=== PATIENT | male | born 1950 | race Caucasian/White ===

== ENCOUNTER 2017-09-19 16:37 | Emergency (ER) | payer MEDICARE, MEDICAID ==
[~2017-09-19] VITALS: Ht 170.2 cm; Wt 90.0 kg
[2017-09-19] MEDS ORDERED: MORPHINE SULFATE 4 MG/ML CPJ (NOT FOR IM USE) IV STA (17:51)
[2017-09-19] MEDS ORDERED: SODIUM CHLORIDE 0.9% 1,000 ML IV ONE (17:51)
[2017-09-19] MEDS ORDERED: ONDANSETRON HCL 4MG/2ML VIAL IV STA (17:51)
[2017-09-19 18:14] LABS: BASOPHILS % 0.6 % (0.0-2.0); EOSINOPHILS % 0.7 % (0.0-5.0); HEMATOCRIT. 34.9 % (42.0-52.0); HEMOGLOBIN. 12.2 g/dL (14.0-18.0); LYMPHOCYTES % 13.6 % (20.0-50.0); MEAN CORPUSCULAR HEMOGLOBIN 30.8 pg (28.0-32.0); MEAN CORPUSCULAR VOLUME 87.7 fL (80.0-94.0); MEAN PLATELET VOLUME 7.8 fl (7.4-10.4); MONOCYTES % 9.1 % (2.0-8.0); PLATELET 114 x1000/uL (130-400); RED BLOOD CELL COUNT 3.97 mill/uL (4.7-6.1); RED CELL DISTRIBUTION WIDTH 15.1 % (11.6-14.6)
[2017-09-19 18:18] LABS: CHLORIDE 104 mEq/L (98-107)
[2017-09-19 18:22] LABS: INR 1.1; PROTHROMBIN TIME 11.1 sec (9.4-11.6)
[2017-09-19 19:07] LABS: CLARITY URINE CLEAR (CLEAR); COLOR URINE AMBER (YELLOW); KETONES URINE NEGATIVE (NEGATIVE); LEUKOCYTE ESTERASE URINE NEGATIVE (NEGATIVE); NITRITE URINE NEGATIVE (NEGATIVE); OCCULT BLOOD URINE 3+ (NEGATIVE); PH URINE 6.5 (4.5-8.0); PROTEIN URINE TRACE (NEGATIVE)
[2017-09-19] MEDS ORDERED: FAMOTIDINE 20MG/2ML VIAL IV ONE (19:15)
[2017-09-19] MEDS ORDERED: MORPHINE SULFATE 4 MG/ML CPJ (NOT FOR IM USE) IV ONE (20:00)
[2017-09-19 21:45] VITALS: BP 140/74
== END 2017-09-20 07:49 | disposition home or self-care (01) ==
LOC: ER 16:38
DX: N13.2 Hydronephrosis with renal and ureteral calculous obstruction (principal); R07.89 Other chest pain; E11.9 Type 2 diabetes mellitus without complications; R03.0 Elevated blood-pressure reading, without diagnosis of hypertension; I25.2 Old myocardial infarction; Z85.038 Personal history of other malignant neoplasm of large intestine; Z95.5 Presence of coronary angioplasty implant and graft
CPT/HCPCS: 36415; 74176; 80053; 81003; 83690; 84484; 85025; 85610; 93005; 96361; 96374; 96375; 96376; 99291; J2270; J2405; J3490; J7030

== ENCOUNTER 2021-05-28 14:52 | Emergency (ER) | payer MEDICARE, MEDICAID ==
[~2021-05-28] VITALS: Ht 170.2 cm; Wt 82.0 kg
[2021-05-28] MEDS ORDERED: SODIUM CHLORIDE 0.9% 1,000 ML IV ONE ×2 (16:15)
[2021-05-28 16:50] LABS: BASOPHILS % 0.6 % (0.0-2.0); EOSINOPHILS % 1.5 % (0.0-5.0); HEMOGLOBIN. 14.5 g/dL (14.0-18.0); LYMPHOCYTES % 17.4 % (20.0-50.0); MEAN CORPUSCULAR HEMOGLOBIN 28.9 pg (28.0-32.0); MEAN CORPUSCULAR VOLUME 83.7 fL (80.0-94.0); MEAN PLATELET VOLUME 7.6 fl (7.4-10.4); MONOCYTES % 10.5 % (2.0-8.0); PLATELET 107 x1000/uL (130-400); RED BLOOD CELL COUNT 5.02 mill/uL (4.7-6.1); RED CELL DISTRIBUTION WIDTH 15.3 % (11.6-14.6)
[2021-05-28 16:57] LABS: CLARITY URINE CLEAR (CLEAR); COLOR URINE YELLOW (YELLOW); KETONES URINE NEGATIVE (NEGATIVE); LEUKOCYTE ESTERASE URINE NEGATIVE (NEGATIVE); NITRITE URINE NEGATIVE (NEGATIVE); OCCULT BLOOD URINE NEGATIVE (NEGATIVE); PH URINE 5.5 (4.5-8.0); PROTEIN URINE NEGATIVE (NEGATIVE); SPECIFIC GRAVITY URINE 1.033 (1.005-1.030); UROBILINOGEN URINE 0.2 E.U./dL (0.2-1.0)
[2021-05-28] MEDS ORDERED: INSULIN REGULAR (HUMULIN R) 300UNITS/3ML VIAL SUBCUT ONE (17:45)
[2021-05-28] MEDS ORDERED: HYDROCODONE/ACETAMINOPHEN 5/325MG TABLET PO ONE (18:00)
[2021-05-28] MEDS ORDERED: DAPA10TA MT (18:14)
[2021-05-28 18:42] VITALS: BP 162/75
== END 2021-05-28 18:47 | disposition home or self-care (01) ==
LOC: ER 14:52
DX: M25.561 Pain in right knee (principal); E11.65 Type 2 diabetes mellitus with hyperglycemia; I12.9 Hypertensive chronic kidney disease with stage 1 through stage 4 chronic kidney disease, or unspecified chronic kidney disease; E11.22 Type 2 diabetes mellitus with diabetic chronic kidney disease; N18.9 Chronic kidney disease, unspecified; Z79.4 Long term (current) use of insulin; Z85.9 Personal history of malignant neoplasm, unspecified; I25.2 Old myocardial infarction
CPT/HCPCS: 36415; 73562; 80048; 81003; 82962; 85025; 96360; 99284; J1815; J7030

== ENCOUNTER 2022-05-18 10:05 | Inpatient (IN) | payer MEDICARE, MEDICAID ==
[~2022-05-18] VITALS: Ht 170.2 cm; Wt 91.2 kg
[~2022-05-18 10:05] MED LIST: DAPA10TA MT
[2022-05-18] MEDS ORDERED: ACETAMINOPHEN 325MG TABLET PO STA (10:24)
[2022-05-18] MEDS ORDERED: ONDANSETRON 4MG ODT PO STA (10:24)
[2022-05-18 13:19] LABS: BASOPHILS % 0.3 % (0.0-2.0); EOSINOPHILS % 0.5 % (0.0-5.0); HEMATOCRIT. 40.8 % (42.0-52.0); HEMOGLOBIN. 13.8 g/dL (14.0-18.0); LYMPHOCYTES % 16.6 % (20.0-50.0); MEAN CORPUSCULAR HEMOGLOBIN 29.6 pg (28.0-32.0); MEAN CORPUSCULAR VOLUME 87.5 fL (80.0-94.0); MEAN PLATELET VOLUME 7.9 fl (7.4-10.4); MONOCYTES % 13.1 % (2.0-8.0); NEUTROPHILS % 69.5 % (40.0-76.0); PLATELET 121 x1000/uL (130-400); RED BLOOD CELL COUNT 4.66 mill/uL (4.7-6.1); RED CELL DISTRIBUTION WIDTH 14.9 % (11.6-14.6)
[2022-05-18 13:39] LABS: PROTHROMBIN TIME 10.7 sec (9.6-11.0)
[2022-05-18 14:01] LABS: CHLORIDE 96 mEq/L (98-107)
[2022-05-18] MEDS ORDERED: KETOROLAC 30MG/ML VIAL IV STA (14:59)
[2022-05-18] MEDS ORDERED: ACETAMINOPHEN 325MG TABLET PO NR (15:00)
[2022-05-18] MEDS ORDERED: ONDANSETRON 4MG ODT PO NR (15:00)
[2022-05-18] MEDS ORDERED: SODIUM CHLORIDE 0.9% 1,000 ML IV ONE (15:00)
[2022-05-18 15:22] LABS: CLARITY URINE CLEAR (CLEAR); COLOR URINE YELLOW (YELLOW); KETONES URINE NEGATIVE (NEGATIVE); LEUKOCYTE ESTERASE URINE NEGATIVE (NEGATIVE); NITRITE URINE NEGATIVE (NEGATIVE); OCCULT BLOOD URINE NEGATIVE (NEGATIVE); PH URINE 5.5 (4.5-8.0); PROTEIN URINE 1+ (NEGATIVE); SPECIFIC GRAVITY URINE 1.038 (1.005-1.030)
[2022-05-18] MEDS ORDERED: INSULIN REGULAR (HUMULIN R) 300UNITS/3ML VIAL IV ONE (16:00)
[2022-05-18] MEDS ORDERED: DEXTROSE 50% WATER 50ML SYRINGE IV PRN (19:30)
[2022-05-18] MEDS ORDERED: NITROGLYCERIN 0.4MG TABLET SL SL PRN (19:30)
[2022-05-18] MEDS ORDERED: ACETAMINOPHEN 325MG TABLET PO PRN ×2 (19:30)
[2022-05-18] MEDS ORDERED: ONDANSETRON HCL 4MG/2ML INJ IV PRN (19:30)
[2022-05-18] MEDS ORDERED: ZOLPIDEM TARTRATE 5MG TABLET PO PRN (19:30)
[2022-05-18] MEDS ORDERED: MAGNESIUM/ALUMINUM HYDROXIDE/SIMETHICONE 30ML UDC PO PRN (19:30)
[2022-05-18] MEDS ORDERED: CLONIDINE 0.1MG TABLET PO PRN (19:30)
[2022-05-18] MEDS ORDERED: GUAIFENESIN 200MG/10ML SUGAR FREE UDC PO PRN (19:30)
[2022-05-18] MEDS ORDERED: IPRATROPIUM/ALBUTEROL 0.5-3(2.5)MG/3ML NEB NEB PRN (19:30)
[2022-05-18] MEDS ORDERED: DOCUSATE SODIUM 100MG CAPSULE PO PRN (19:30)
[2022-05-18] MEDS ORDERED: ENOXAPARIN 40MG/0.4ML SYR SUBCUT SCH (19:45)
[2022-05-18] MEDS ORDERED: CEFTRIAXONE 1 G PREMIX 50 ML IV NR (19:45)
[2022-05-18 19:57] LABS: T4 FREE 1.09 ng/dL (0.76-1.46)
[2022-05-18] MEDS: INSULIN LISPRO 100 UNITS/ML SUBCUT SCH (20:08)
[2022-05-18] MEDS: SODIUM CHLORIDE 0.9% 1,000 ML IV SCH (20:08)
[2022-05-18 20:14] LABS: FOLIC ACID (FOLATE) SERUM 17.1 ng/mL (>5.38)
[2022-05-18] MEDS ORDERED: FAMOTIDINE 20MG TABLET PO SCH (21:00)
[2022-05-18] MEDS ORDERED: BLOOD SUGAR DIAGNOSTIC STRIP TEST SCH (21:00)
[2022-05-18] MEDS ORDERED: ASCORBIC ACID 500 MG TABLET PO SCH (21:00)
[2022-05-18] MEDS ORDERED: INSULIN LISPRO 100 UNITS/ML SUBCUT SCH (21:00)
[2022-05-18] MEDS: INSULIN GLARGINE 100 UNITS/ML SUBCUT SCH (22:00)
[2022-05-19 05:00] VITALS: BP 130/55
[2022-05-19] MEDS ORDERED: INSULIN GLARGINE 100 UNITS/ML SUBCUT NR (05:45)
[2022-05-19] MEDS: SODIUM CHLORIDE 0.9% 1,000 ML IV SCH (06:26)
[2022-05-19] MEDS: INSULIN LISPRO 100 UNITS/ML SUBCUT SCH ×6 (06:42→21:28)
[2022-05-19] MEDS: BLOOD SUGAR DIAGNOSTIC STRIP TEST SCH ×3 (06:43→21:08)
[2022-05-19 08:00] VITALS: BP 117/50
[2022-05-19] MEDS ORDERED: ZINC SULFATE 220 MG ( 50 ) CAPSULE PO SCH (09:00)
[2022-05-19] MEDS ORDERED: TAMSULOSIN HCL 0.4MG SR CAPSULE PO SCH (09:00)
[2022-05-19 10:48] LABS: BASOPHILS % 0.7 % (0.0-2.0); EOSINOPHILS % 1.8 % (0.0-5.0); HEMATOCRIT. 35.1 % (42.0-52.0); HEMOGLOBIN. 12.1 g/dL (14.0-18.0); LYMPHOCYTES % 22.2 % (20.0-50.0); MEAN CORPUSCULAR HEMOGLOBIN 29.6 pg (28.0-32.0); MEAN PLATELET VOLUME 7.3 fl (7.4-10.4); MONOCYTES % 14.8 % (2.0-8.0); NEUTROPHILS % 60.5 % (40.0-76.0); PLATELET 112 x1000/uL (130-400); RED BLOOD CELL COUNT 4.08 mill/uL (4.7-6.1); RED CELL DISTRIBUTION WIDTH 14.7 % (11.6-14.6)
[2022-05-19 11:03] LABS: CHLORIDE 107 mEq/L (98-107)
[2022-05-19 11:11] LABS: PHOSPHORUS 1.8 mg/dL (2.5-4.9)
[2022-05-19 12:00] VITALS: BP 120/55
[2022-05-19] MEDS: KETOROLAC 15MG/ML VIAL IV PRN (12:21)
[2022-05-19 16:00] VITALS: BP 116/55
[2022-05-19] MEDS ORDERED: ALBUTEROL (0.083%) 2.5MG/3ML NEB HHN PRN (16:30)
[2022-05-19] MEDS ORDERED: IPRATROPIUM BROMIDE (0.02%) 0.5MG/2.5ML NEB HHN PRN (16:30)
[2022-05-19] MEDS ORDERED: ENOXAPARIN 40MG/0.4ML SYR SUBCUT SCH (18:30)
[2022-05-19] MEDS ORDERED: CEFTRIAXONE 1,000 MG in DEXTROSE 5% WATER 50 ML IV SCH (19:00)
[2022-05-19 20:00] VITALS: BP 139/68
[2022-05-19] MEDS ORDERED: ATORVASTATIN CALCIUM 20MG TABLET PO SCH (21:00)
[2022-05-19] MEDS: INSULIN GLARGINE 100 UNITS/ML SUBCUT SCH (21:29)
[2022-05-20] VITALS: BP 133/65
[2022-05-20] MEDS: DILTIAZEM HCL 60MG TABLET PO SCH ×2 (00:54→06:49)
[2022-05-20] MEDS: SODIUM CHLORIDE 0.9% 1,000 ML IV SCH (00:54)
[2022-05-20 04:00] VITALS: BP 127/46
[2022-05-20] MEDS: KETOROLAC 15MG/ML VIAL IV PRN (06:50)
[2022-05-20] MEDS: BLOOD SUGAR DIAGNOSTIC STRIP TEST SCH ×2 (07:05→12:20)
[2022-05-20] MEDS: INSULIN LISPRO 100 UNITS/ML SUBCUT SCH ×3 (07:10→13:32)
[2022-05-20 08:00] VITALS: BP 123/51
[2022-05-20] MEDS ORDERED: LEVO250T74 MT (09:59)
[2022-05-20] MEDS ORDERED: ATOR20TA PO (09:59)
[2022-05-20] MEDS ORDERED: LANTUSUD SUBCUT (09:59)
[2022-05-20] MEDS ORDERED: AMLO5TAB4 MT (09:59)
[2022-05-20] MEDS ORDERED: INSLIS SUBCUT (09:59)
[2022-05-20 12:00] VITALS: BP 120/57
[2022-05-20 12:16] VITALS: BP 123/51
== END 2022-05-20 13:58 | disposition home or self-care (01) | DRG 391 ==
LOC: ER 10:17 → MICUSO 19:22 → SUPCPDRO 20:39 → 6EST 05-19 03:29
PROVIDERS: ADMIT Internal Medicine; ATTEND Internal Medicine
DX: K52.9 Noninfective gastroenteritis and colitis, unspecified (principal); N17.0 Acute kidney failure with tubular necrosis; N13.2 Hydronephrosis with renal and ureteral calculous obstruction; E87.1 Hypo-osmolality and hyponatremia; K21.9 Gastro-esophageal reflux disease without esophagitis; E11.65 Type 2 diabetes mellitus with hyperglycemia; D69.6 Thrombocytopenia, unspecified; I12.9 Hypertensive chronic kidney disease with stage 1 through stage 4 chronic kidney disease, or unspecified chronic kidney disease; E78.00 Pure hypercholesterolemia, unspecified; I25.10 Atherosclerotic heart disease of native coronary artery without angina pectoris; E11.22 Type 2 diabetes mellitus with diabetic chronic kidney disease; E87.8 Other disorders of electrolyte and fluid balance, not elsewhere classified; D72.819 Decreased white blood cell count, unspecified; N18.9 Chronic kidney disease, unspecified; Z85.038 Personal history of other malignant neoplasm of large intestine; Z91.14 Patient's other noncompliance with medication regimen; Z79.4 Long term (current) use of insulin; I25.2 Old myocardial infarction; Z87.442 Personal history of urinary calculi; Z90.49 Acquired absence of other specified parts of digestive tract
CPT/HCPCS: 36415; 74176; 80053; 80061; 81003; 82607; 82746; 82962; 83036; 83540; 83550; 83735; 83930; 84100; 84439; 84443; 84484; 85025; 93005; 93970; 99285; J0696; J1650; J1815; J1885; J7030; J7060; Q0162

== ENCOUNTER 2023-05-13 16:23 | Emergency (ER) | payer MEDICARE, MEDICAID ==
[~2023-05-13] VITALS: Ht 170.2 cm; Wt 73.0 kg
[~2023-05-13 16:23] MED LIST changes: +AMLO5TAB4 MT; +ATOR20TA PO; +INSLIS SUBCUT; +LANTUSUD SUBCUT; +LEVO250T74 MT
[2023-05-13 16:25] VITALS: O2SAT 100
[2023-05-13 16:40] VITALS: BP 121/52; PULSE 73; RESP 16; TEMP 97.5
[2023-05-13] MEDS: SODIUM CHLORIDE 0.9% 1,000 ML IV ONE (16:49)
[2023-05-13 18:07] LABS: BASOPHILS % 0.7 % (0.0-2.0); EOSINOPHILS % 0.7 % (0.0-5.0); HEMATOCRIT. 31.5 % (42.0-52.0); HEMOGLOBIN. 10.8 g/dL (14.0-18.0); MEAN CORPUSCULAR HEMOGLOBIN 29.9 pg (28.0-32.0); MEAN CORPUSCULAR HGB CONC 34.3 g/dL (31.0-37.0); MEAN CORPUSCULAR VOLUME 87.2 fL (80.0-94.0); NEUTROPHILS % 62.6 % (40.0-76.0); PLATELET 87 x1000/uL (130-400); RED BLOOD CELL COUNT 3.61 mill/uL (4.7-6.1); RED CELL DISTRIBUTION WIDTH 15.2 % (11.6-14.6)
[2023-05-13 18:19] LABS: ALANINE AMINOTRANSFERASE < 7 IU/L (10-49); ALBUMIN 3.7 g/dL (3.2-4.8); ASPARTATE AMINOTRANSFERASE 9 IU/L (<34); BETA HYDROXYBUTYRATE 0.3 mMol/L (0.0-0.3); BILIRUBIN TOTAL 1.7 mg/dL (0.1-1.0); CALCIUM 9.1 mg/dL (8.7-10.4); CARBON DIOXIDE 26 mEq/L (21-32); CHLORIDE 99 mEq/L (98-107); CREATININE 1.6 mg/dL (0.6-1.3); POTASSIUM 4.6 mEq/L (3.5-5.1); PROTEIN TOTAL 5.9 g/dL (6.0-8.3); SODIUM 131 mEq/L (136-145); UREA NITROGEN BLOOD 22 mg/dL (9-23)
[2023-05-13 18:24] LABS: GLUCOSE 520 mg/dL (70-105)
== END 2023-05-13 19:32 | disposition left against medical advice (07) ==
LOC: ER 16:23
DX: E11.65 Type 2 diabetes mellitus with hyperglycemia (principal); E78.00 Pure hypercholesterolemia, unspecified; I10 Essential (primary) hypertension; I25.2 Old myocardial infarction; Z85.9 Personal history of malignant neoplasm, unspecified
CPT/HCPCS: 99283; 96360; 80053; 82010; 85025; 36415; J7030

== ENCOUNTER 2023-07-16 13:43 | Emergency (ER) | payer MEDICARE, MEDICAID ==
[~2023-07-16] VITALS: Ht 167.6 cm; Wt 82.0 kg
[2023-07-16 13:48] VITALS: O2SAT 100
[2023-07-16] MEDS: SODIUM CHLORIDE 0.9% 1,000 ML IV ONE (14:51)
[2023-07-16 14:56] LABS: BASOPHILS % 0.9 % (0.0-2.0); EOSINOPHILS % 0.7 % (0.0-5.0); HEMATOCRIT. 29.8 % (42.0-52.0); HEMOGLOBIN. 10.3 g/dL (14.0-18.0); LYMPHOCYTES % 18.8 % (20.0-50.0); MEAN CORPUSCULAR HEMOGLOBIN 30.3 pg (28.0-32.0); MEAN CORPUSCULAR HGB CONC 34.7 g/dL (31.0-37.0); MEAN CORPUSCULAR VOLUME 87.2 fL (80.0-94.0); MONOCYTES % 12.2 % (2.0-8.0); NEUTROPHILS % 67.4 % (40.0-76.0); PLATELET 80 x1000/uL (130-400); RED BLOOD CELL COUNT 3.41 mill/uL (4.7-6.1); RED CELL DISTRIBUTION WIDTH 14.1 % (11.6-14.6); WHITE BLOOD COUNT 2.7 x1000/uL (4.5-11.0)
[2023-07-16 15:02] LABS: CHLORIDE 101 mEq/L (98-107); POTASSIUM 4.4 mEq/L (3.5-5.1); SODIUM 135 mEq/L (136-145)
[2023-07-16 15:03] LABS: CARBON DIOXIDE 28 mEq/L (21-32)
[2023-07-16 15:08] LABS: CREATININE 1.5 mg/dL (0.6-1.3)
[2023-07-16 15:09] LABS: UREA NITROGEN BLOOD 27 mg/dL (9-23)
[2023-07-16 15:10] LABS: ALANINE AMINOTRANSFERASE 9 IU/L (10-49); ALBUMIN 4.2 g/dL (3.2-4.8); ASPARTATE AMINOTRANSFERASE 13 IU/L (<34)
[2023-07-16 15:11] LABS: PROTEIN TOTAL 6.8 g/dL (6.0-8.3)
[2023-07-16 15:12] LABS: INR 0.9; PROTHROMBIN TIME 10.5 sec (9.6-11.0)
[2023-07-16 15:22] LABS: ETHANOL BLOOD < 10 mg/dL (<10); GLUCOSE 472 mg/dL (70-105); TROPONIN I HIGH SENSITIVITY < 4 ng/L (3.0-53)
[2023-07-16 15:38] LABS: CLARITY URINE CLEAR (CLEAR); COLOR URINE YELLOW (YELLOW); GLUCOSE URINE 3+ (NEGATIVE); KETONES URINE NEGATIVE (NEGATIVE); LEUKOCYTE ESTERASE URINE NEGATIVE (NEGATIVE); NITRITE URINE NEGATIVE (NEGATIVE); OCCULT BLOOD URINE TRACE (NEGATIVE); PROTEIN URINE 2+ (NEGATIVE)
[2023-07-16] MEDS: INSULIN REGULAR (HUMULIN R) 300UNITS/3ML VIAL IV ONE (15:48)
[2023-07-16 16:55] LABS: BACTERIA URINE TRACE; RBC URINE 0-2 /hpf (0-2); SQUAMOUS EPITHELIAL CELL URINE RARE /lpf (RARE/1+); WBC URINE NONE SEEN /hpf (0-2)
[2023-07-16 17:10] LABS: TROPONIN I HIGH SENSITIVITY < 4 ng/L (3.0-53)
[2023-07-16] MEDS: ASPIRIN 325MG EC TABLET PO ONE (18:04)
[2023-07-16 18:12] LABS: TROPONIN I HIGH SENSITIVITY < 4 ng/L (3.0-53)
[2023-07-16 18:50] VITALS: BP 152/74; PULSE 73; RESP 16; TEMP 98.2
== END 2023-07-16 19:48 | disposition left against medical advice (07) ==
LOC: ER 13:43 → CANBEDREQ 07-17 16:31
DX: I63.9 Cerebral infarction, unspecified (principal); E11.9 Type 2 diabetes mellitus without complications; E78.00 Pure hypercholesterolemia, unspecified; I10 Essential (primary) hypertension; I25.2 Old myocardial infarction; Z85.9 Personal history of malignant neoplasm, unspecified; Z98.890 Other specified postprocedural states
CPT/HCPCS: 80053; 81003; 80320; 82962; 83605; 83690; 85025; 85610; 84484; 36415; 71045; 70450; 93005; 96361; 96374; 99285; J1815; J7030; G0480

== ENCOUNTER 2024-02-29 19:47 | Inpatient (IN) | payer OTHER, MEDICARE, MEDICAID ==
[~2024-02-29] VITALS: Ht 170.2 cm; Wt 59.9 kg
[~2024-02-29 19:47] MED LIST changes: -AMLO5TAB4 MT; +ASPI-1406 PO; -ATOR20TA PO; +ATOR40TA70 PO; -DAPA10TA MT; +GABA-529 PO; +GLIP10TA17 PO; -INSLIS SUBCUT; +INSU100I13 SUBCUT; +LACT10SO7 PO; -LANTUSUD SUBCUT; -LEVO250T74 MT; +LOSA100T33 PO; +OLAN5TAB74 PO; +PIOG45TA64 PO; +QUET25TA PO; +SITA100T11 PO
[2024-02-29] MEDS ORDERED: LACTATED RINGERS 1,000 ML IV SCH (20:15)
[2024-02-29] MEDS: SODIUM CHLORIDE 0.9% (SEPSIS BOLUS) IV ONE (20:21)
[2024-02-29 20:26] LABS: BASOPHILS % 0.5 % (0.0-2.0); EOSINOPHILS % 1.1 % (0.0-5.0); HEMATOCRIT. 30.4 % (42.0-52.0); HEMOGLOBIN. 10.4 g/dL (14.0-18.0); LYMPHOCYTES % 20.7 % (20.0-50.0); MEAN CORPUSCULAR HEMOGLOBIN 31.6 pg (28.0-32.0); MEAN CORPUSCULAR HGB CONC 34.2 g/dL (31.0-37.0); MEAN CORPUSCULAR VOLUME 92.3 fL (80.0-94.0); MEAN PLATELET VOLUME 7.5 fl (7.4-10.4); MONOCYTES % 9.9 % (2.0-8.0); NEUTROPHILS % 67.8 % (40.0-76.0); PLATELET 132 x1000/uL (130-400); RED BLOOD CELL COUNT 3.29 mill/uL (4.7-6.1); RED CELL DISTRIBUTION WIDTH 15.1 % (11.6-14.6); WHITE BLOOD COUNT 4.8 x1000/uL (4.5-11.0)
[2024-02-29 20:31] LABS: CHLORIDE 107 mEq/L (98-107); POTASSIUM 4.1 mEq/L (3.5-5.1); SODIUM 139 mEq/L (136-145)
[2024-02-29 20:32] LABS: CARBON DIOXIDE 23 mEq/L (21-32)
[2024-02-29 20:33] LABS: CALCIUM 8.5 mg/dL (8.7-10.4)
[2024-02-29 20:37] LABS: CREATININE 1.3 mg/dL (0.6-1.3); GLUCOSE 206 mg/dL (70-105); UREA NITROGEN BLOOD 26 mg/dL (9-23)
[2024-02-29 20:38] LABS: PARTIAL THROMBOPLASTIN TIME 27.7 sec (23.4-31.0); PROTHROMBIN TIME 11.6 sec (9.6-11.0); TROPONIN I HIGH SENSITIVITY 4 ng/L (3.0-53)
[2024-02-29 20:39] LABS: ALANINE AMINOTRANSFERASE 8 IU/L (10-49); ALBUMIN 3.2 g/dL (3.2-4.8); ASPARTATE AMINOTRANSFERASE 11 IU/L (<34)
[2024-02-29 20:40] LABS: BILIRUBIN DIRECT 0.4 mg/dL (<=3.0); BILIRUBIN TOTAL 1.5 mg/dL (0.1-1.0); PROTEIN TOTAL 5.4 g/dL (6.0-8.3)
[2024-02-29] MEDS: PIPERACILLIN/TAZO 3.375G/50ML 50 ML IV STA (21:12)
[2024-02-29] MEDS: VANCOMYCIN 1G PREMIX 200 ML IV SCH (21:47)
[2024-03-01] MEDS: ASPIRIN 300MG SUPP PR ONE (00:50)
[2024-03-01 05:00] VITALS: BP 166/62; PULSE 82; RESP 20; TEMP 36.418
[2024-03-01] MEDS ORDERED: DEXTROSE 50% WATER 50ML SYRINGE IV PRN (05:45)
[2024-03-01] MEDS: BLOOD SUGAR DIAGNOSTIC STRIP TEST SCH (06:39)
[2024-03-01] MEDS: INSULIN LISPRO 100 UNITS/ML SUBCUT SCH (06:40)
[2024-03-01] MEDS: PIPERACILLIN/TAZO 3.375G/100ML 100 ML IV SCH (06:44)
[2024-03-01] MEDS: CLONIDINE 0.1MG TABLET PO PRN (06:44)
[2024-03-01 08:18] VITALS: BP 140/68; PULSE 82; RESP 19; TEMP 35.78064; O2SAT 97
[2024-03-01 09:46] LABS: CARBON DIOXIDE 26 mEq/L (21-32); CHLORIDE 109 mEq/L (98-107); POTASSIUM 3.9 mEq/L (3.5-5.1); SODIUM 140 mEq/L (136-145)
[2024-03-01 09:47] LABS: CALCIUM 8.8 mg/dL (8.7-10.4)
[2024-03-01] MEDS: PANTOPRAZOLE SODIUM 40 MG/VIAL IV SCH (09:50)
[2024-03-01 09:52] LABS: CREATININE 1.2 mg/dL (0.6-1.3); GLUCOSE 182 mg/dL (70-105); UREA NITROGEN BLOOD 28 mg/dL (9-23)
[2024-03-01 09:53] LABS: ALANINE AMINOTRANSFERASE < 7 IU/L (10-49); AMMONIA < 17 uMol/L (<32); ASPARTATE AMINOTRANSFERASE 9 IU/L (<34)
[2024-03-01 09:54] LABS: ALBUMIN 3.2 g/dL (3.2-4.8); BILIRUBIN DIRECT 0.5 mg/dL (<=3.0); BILIRUBIN TOTAL 1.7 mg/dL (0.1-1.0); PROTEIN TOTAL 5.2 g/dL (6.0-8.3)
[2024-03-01 10:37] LABS: BASOPHILS % 0.7 % (0.0-2.0); EOSINOPHILS % 1.9 % (0.0-5.0); HEMATOCRIT. 27.3 % (42.0-52.0); HEMOGLOBIN. 9.3 g/dL (14.0-18.0); LYMPHOCYTES % 24.9 % (20.0-50.0); MEAN CORPUSCULAR HGB CONC 34.2 g/dL (31.0-37.0); MEAN CORPUSCULAR VOLUME 90.6 fL (80.0-94.0); MEAN PLATELET VOLUME 7.4 fl (7.4-10.4); MONOCYTES % 7.6 % (2.0-8.0); NEUTROPHILS % 64.9 % (40.0-76.0); PLATELET 110 x1000/uL (130-400); RED BLOOD CELL COUNT 3.01 mill/uL (4.7-6.1); WHITE BLOOD COUNT 4.8 x1000/uL (4.5-11.0)
[2024-03-01 12:00] VITALS: BP 121/52; PULSE 80; RESP 20; TEMP 36.3918; O2SAT 97
[2024-03-01] MEDS ORDERED: LACTULOSE 20G/30ML UDC PO PRN (12:30)
[2024-03-01 16:00] VITALS: BP 119/58; PULSE 93; RESP 20; TEMP 36.33624; O2SAT 96
[2024-03-01 20:00] VITALS: BP 123/78; PULSE 76; RESP 19; TEMP 35.89176; O2SAT 100
[2024-03-01] MEDS: QUETIAPINE FUMARATE 25MG TABLET PO SCH (20:56)
[2024-03-01] MEDS: ATORVASTATIN CALCIUM 40MG TABLET PO SCH (20:56)
[2024-03-01] MEDS: PIPERACILLIN/TAZO 3.375G/50ML 50 ML IV SCH (23:12)
[2024-03-02] VITALS: BP 161/77; PULSE 79; RESP 18; TEMP 35.89176; O2SAT 100
[2024-03-02 04:00] VITALS: BP 108/83; PULSE 101; RESP 20; TEMP 35.89176; O2SAT 98
[2024-03-02 06:08] LABS: CLARITY URINE CLEAR (CLEAR); COLOR URINE YELLOW (YELLOW); GLUCOSE URINE NEGATIVE (NEGATIVE); KETONES URINE NEGATIVE (NEGATIVE); LEUKOCYTE ESTERASE URINE NEGATIVE (NEGATIVE); NITRITE URINE NEGATIVE (NEGATIVE); OCCULT BLOOD URINE NEGATIVE (NEGATIVE); PH URINE 5.5 (4.5-8.0); PROTEIN URINE 1+ (NEGATIVE); SPECIFIC GRAVITY URINE 1.009 (1.005-1.030); UROBILINOGEN URINE 0.2 E.U./dL (0.2-1.0)
[2024-03-02 07:04] LABS: SQUAMOUS EPITHELIAL CELL URINE NONE SEEN /lpf (RARE/1+)
[2024-03-02 07:05] LABS: BACTERIA URINE NONE SEEN; RBC URINE 0-2 /hpf (0-2); WBC URINE 0-2 /hpf (0-2)
[2024-03-02 07:38] LABS: CHLORIDE 109 mEq/L (98-107); POTASSIUM 3.9 mEq/L (3.5-5.1); SODIUM 142 mEq/L (136-145)
[2024-03-02 07:39] LABS: CALCIUM 9.4 mg/dL (8.7-10.4); CARBON DIOXIDE 27 mEq/L (21-32)
[2024-03-02 07:44] LABS: GLUCOSE 106 mg/dL (70-105); UREA NITROGEN BLOOD 20 mg/dL (9-23)
[2024-03-02 08:00] VITALS: BP 152/70; PULSE 89; RESP 19; TEMP 36.55848; O2SAT 100
[2024-03-02 08:39] LABS: BASOPHILS % 0.9 % (0.0-2.0); EOSINOPHILS % 2.1 % (0.0-5.0); HEMATOCRIT. 30.3 % (42.0-52.0); HEMOGLOBIN. 10.6 g/dL (14.0-18.0); LYMPHOCYTES % 27.6 % (20.0-50.0); MEAN CORPUSCULAR HEMOGLOBIN 31.4 pg (28.0-32.0); MEAN CORPUSCULAR HGB CONC 34.9 g/dL (31.0-37.0); MEAN PLATELET VOLUME 7.7 fl (7.4-10.4); MONOCYTES % 7.2 % (2.0-8.0); NEUTROPHILS % 62.2 % (40.0-76.0); PLATELET 109 x1000/uL (130-400); RED BLOOD CELL COUNT 3.37 mill/uL (4.7-6.1); RED CELL DISTRIBUTION WIDTH 15.4 % (11.6-14.6); WHITE BLOOD COUNT 4.6 x1000/uL (4.5-11.0)
[2024-03-02] MEDS: LOSARTAN 100 MG TABLET PO SCH (09:15)
[2024-03-02] MEDS: OLANZAPINE 5MG TABLET PO SCH (09:15)
[2024-03-02] MEDS: LEVETIRACETAM 500MG TABLET PO SCH (09:15)
[2024-03-02] MEDS: ASPIRIN 81MG EC TABLET PO SCH (09:16)
[2024-03-02 12:00] VITALS: BP 99/51; PULSE 87; RESP 20; TEMP 36.3918; O2SAT 96
[2024-03-02 16:00] VITALS: BP 154/55; PULSE 89; RESP 19; TEMP 36.16956; O2SAT 100
[2024-03-02 20:00] VITALS: BP 155/71; PULSE 98; RESP 18; TEMP 36.05844; O2SAT 98
[2024-03-03] VITALS: BP 142/68; PULSE 88; RESP 20; TEMP 36.00288; O2SAT 97
[2024-03-03 04:00] VITALS: BP 163/81; PULSE 100; RESP 18; TEMP 35.5584; O2SAT 98
[2024-03-03 08:00] VITALS: BP 149/76; PULSE 91; RESP 15; TEMP 37.28076; O2SAT 100
[2024-03-03 12:00] VITALS: BP 144/77; PULSE 89; RESP 15; TEMP 36.114; O2SAT 100
[2024-03-03 16:00] VITALS: BP 137/68; PULSE 87; RESP 19; TEMP 36.72516; O2SAT 100
[2024-03-03 20:00] VITALS: BP 144/58; PULSE 84; RESP 18; TEMP 35.5584; O2SAT 96
[2024-03-04] VITALS: BP 131/68; PULSE 85; RESP 18; TEMP 35.78064; O2SAT 98
[2024-03-04 04:00] VITALS: BP 145/70; PULSE 90; RESP 18; TEMP 36.16956; O2SAT 98
[2024-03-04 08:00] VITALS: BP 127/60; PULSE 90; RESP 16; TEMP 36.89184; O2SAT 99
[2024-03-04] MEDS: LORAZEPAM 2MG/ML INJ IV PRN (10:31)
[2024-03-04 12:00] VITALS: BP 118/66; PULSE 89; RESP 17; TEMP 36.28068; O2SAT 100
[2024-03-04 16:00] VITALS: BP 150/76; PULSE 91; RESP 19; TEMP 36.50292; O2SAT 96
[2024-03-04 20:00] VITALS: BP 158/82; PULSE 89; RESP 18; TEMP 36.72516; O2SAT 100
[2024-03-05] VITALS: BP 160/88; PULSE 83; RESP 18; TEMP 36.61404; O2SAT 100
[2024-03-05 04:00] VITALS: BP 150/75; PULSE 84; RESP 19; TEMP 36.50292; O2SAT 100
[2024-03-05 08:00] VITALS: BP 131/68; PULSE 94; RESP 20; TEMP 36.3918; O2SAT 97
[2024-03-05 12:00] VITALS: BP 131/79; PULSE 101; RESP 20; TEMP 36.33624; O2SAT 97
[2024-03-05 16:00] VITALS: BP 151/64; PULSE 95; RESP 20; TEMP 36.33624; O2SAT 99
[2024-03-05 20:00] VITALS: BP 123/67; PULSE 93; RESP 19; TEMP 36.61404; O2SAT 100
[2024-03-06] VITALS: BP 120/72; PULSE 95; RESP 20; TEMP 36.44736; O2SAT 98
[2024-03-06 04:00] VITALS: BP 135/70; PULSE 89; RESP 18; TEMP 36.33624; O2SAT 98
[2024-03-06 08:00] VITALS: BP 139/65; PULSE 91; RESP 20; TEMP 36.33624; O2SAT 97
[2024-03-06 11:45] VITALS: BP 142/69; PULSE 91; RESP 20; TEMP 36.3918; O2SAT 98
[2024-03-06 16:00] VITALS: BP 120/74; PULSE 95; RESP 20; TEMP 36.33624; O2SAT 98
[2024-03-06 20:00] VITALS: BP 130/57; PULSE 82; RESP 18; TEMP 36.55848; O2SAT 100
[2024-03-07] VITALS: BP 133/80; PULSE 85; RESP 19; TEMP 36.61404; O2SAT 100
[2024-03-07 04:00] VITALS: BP 123/71; PULSE 83; RESP 18; TEMP 36.61404; O2SAT 100
[2024-03-07 08:00] VITALS: BP 122/75; PULSE 94; RESP 18; TEMP 36.05844; O2SAT 100
[2024-03-07 12:00] VITALS: BP_SYST 116; BP_SYST 124; BP_DIAS 48; BP_DIAS 80; PULSE 68; PULSE 92; RESP 18; TEMP 36.16956; TEMP 36.33624; O2SAT 98
[2024-03-07 16:00] VITALS: BP 113/60; PULSE 94; RESP 18; TEMP 36.3918; O2SAT 98
[2024-03-07 20:00] VITALS: BP 116/61; PULSE 91; RESP 18; TEMP 36.6696; O2SAT 100
[2024-03-08] VITALS: BP 100/56; PULSE 99; RESP 19; TEMP 36.3918; O2SAT 100
[2024-03-08 04:00] VITALS: BP 107/61; PULSE 103; RESP 20; TEMP 36.50292; O2SAT 100
[2024-03-08 08:00] VITALS: BP 126/70; PULSE 96; RESP 18; TEMP 36.16956; O2SAT 100
[2024-03-08 12:00] VITALS: BP_SYST 115; BP_SYST 142; BP_DIAS 55; BP_DIAS 68; PULSE 96; PULSE 98; RESP 18; TEMP 36.16956; TEMP 37.16964; O2SAT 100; O2SAT 98
[2024-03-08 16:00] VITALS: BP 113/70; PULSE 89; RESP 18; TEMP 36.114; O2SAT 98
[2024-03-08 20:00] VITALS: BP 117/57; PULSE 85; RESP 18; TEMP 36.50292; O2SAT 100
[2024-03-09] VITALS: BP 129/57; PULSE 84; RESP 18; TEMP 36.16956; O2SAT 100
[2024-03-09 04:00] VITALS: BP 105/48; PULSE 86; RESP 19; TEMP 36.44736; O2SAT 97
[2024-03-09 08:00] VITALS: BP 115/61; PULSE 90; RESP 18; TEMP 36.83628; O2SAT 95
[2024-03-09 12:00] VITALS: BP 129/70; PULSE 94; RESP 15; TEMP 36.83628; O2SAT 99
[2024-03-09 16:00] VITALS: BP 128/64; PULSE 99; RESP 15; TEMP 36.22512; O2SAT 100
[2024-03-09 20:00] VITALS: BP 125/82; PULSE 97; RESP 17; TEMP 36.83628; O2SAT 99
[2024-03-10] VITALS: BP 124/73; PULSE 97; RESP 18; TEMP 37.00296; O2SAT 99
[2024-03-10 04:00] VITALS: BP 127/77; PULSE 97; RESP 17; TEMP 36.44736; O2SAT 99
[2024-03-10 08:00] VITALS: BP 109/62; PULSE 99; RESP 20; TEMP 36.72516; O2SAT 96
[2024-03-10 10:50] VITALS: BP 111/50; PULSE 97; RESP 16; TEMP 36.3918; O2SAT 97
[2024-03-10 20:00] VITALS: BP 142/89; PULSE 94; RESP 19; TEMP 36.22512; O2SAT 97
[2024-03-10 23:46] VITALS: BP 116/54; PULSE 62; RESP 20; TEMP 36.05844; O2SAT 97
[2024-03-11 04:00] VITALS: BP 107/62; PULSE 59; RESP 20; TEMP 36.05844; O2SAT 97
[2024-03-11 08:00] VITALS: BP 145/74; PULSE 92; RESP 19; TEMP 36.61404; O2SAT 97
[2024-03-11 12:00] VITALS: BP 125/69; PULSE 101; RESP 18; TEMP 36.61404; O2SAT 100
[2024-03-11 16:00] VITALS: BP 109/55; PULSE 84; RESP 18; TEMP 36.44736; O2SAT 99
[2024-03-11 20:00] VITALS: BP 143/97; PULSE 91; RESP 18; TEMP 36.50292; O2SAT 92
[2024-03-12] VITALS: BP 104/71; PULSE 66; RESP 18; TEMP 36.114; O2SAT 99
[2024-03-12 04:00] VITALS: BP 94/55; PULSE 85; RESP 18; TEMP 36.114; O2SAT 95
[2024-03-12 08:00] VITALS: BP 97/55; PULSE 95; RESP 17; TEMP 36.05844; O2SAT 96
[2024-03-12 12:00] VITALS: BP 116/56; PULSE 86; RESP 19; TEMP 36.22512; O2SAT 100
[2024-03-12 16:00] VITALS: BP 113/56; PULSE 72; RESP 18; TEMP 36.44736; O2SAT 97
[2024-03-12 20:00] VITALS: BP 105/53; PULSE 60; RESP 19; TEMP 36.114; O2SAT 100
[2024-03-13] VITALS: BP 97/46; PULSE 85; RESP 18; TEMP 36.114; O2SAT 96
[2024-03-13 04:00] VITALS: BP 168/45; PULSE 83; RESP 18; TEMP 36.22512; O2SAT 98
[2024-03-13 08:00] VITALS: BP 132/90; PULSE 84; RESP 16; TEMP 36.28068; O2SAT 95
[2024-03-13 12:00] VITALS: BP 147/70; PULSE 96; RESP 17; TEMP 36.22512; O2SAT 98
[2024-03-13 16:00] VITALS: BP 135/72; PULSE 87; RESP 17; TEMP 36.22512; O2SAT 97
[2024-03-13 20:00] VITALS: BP 135/71; PULSE 72; RESP 18; TEMP 36.22512; O2SAT 96
[2024-03-14] VITALS: BP 108/57; PULSE 68; RESP 19; TEMP 36.3918; O2SAT 99
[2024-03-14 04:00] VITALS: BP 110/60; PULSE 64; RESP 19; TEMP 36.33624; O2SAT 98
[2024-03-14 08:00] VITALS: BP 146/68; PULSE 87; RESP 17; TEMP 35.39172; O2SAT 100
[2024-03-14 12:00] VITALS: BP 195/75; PULSE 94; RESP 17; TEMP 36.44736; O2SAT 99
[2024-03-14 16:00] VITALS: BP 143/74; PULSE 95; RESP 18; TEMP 36.3918; O2SAT 99
[2024-03-14 20:00] VITALS: BP 101/55; PULSE 75; RESP 16; TEMP 36.33624; O2SAT 100
[2024-03-15] VITALS: BP 129/70; PULSE 67; RESP 18; TEMP 36.9474; O2SAT 100
[2024-03-15 04:00] VITALS: BP 116/64; PULSE 79; RESP 18; TEMP 36.3918; O2SAT 96
[2024-03-15 08:00] VITALS: BP 121/70; PULSE 85; RESP 18; TEMP 36.55848; O2SAT 99
[2024-03-15 12:00] VITALS: BP 115/83; PULSE 99; RESP 19; TEMP 36.44736; O2SAT 100
[2024-03-15 16:00] VITALS: BP 128/68; PULSE 99; RESP 19; TEMP 36.50292; O2SAT 99
[2024-03-15] MEDS: INSULIN LISPRO 100 UNITS/ML SUBCUT SCH (17:30)
[2024-03-15 20:00] VITALS: BP 143/63; PULSE 90; RESP 18; TEMP 36.55848; O2SAT 99
[2024-03-16] VITALS: BP 111/30; PULSE 91; RESP 17; TEMP 36.44736; O2SAT 99
[2024-03-16 04:00] VITALS: BP 115/34; PULSE 86; RESP 18; TEMP 36.55848; O2SAT 99
[2024-03-16 08:00] VITALS: BP 135/66; PULSE 86; RESP 20; TEMP 36.44736; O2SAT 98
[2024-03-16 12:00] VITALS: BP 126/55; PULSE 106; RESP 17; TEMP 36.33624; O2SAT 99
[2024-03-16 16:00] VITALS: BP 96/40; PULSE 93; RESP 17; TEMP 36.3918; O2SAT 100
[2024-03-16 20:00] VITALS: BP 131/56; PULSE 94; RESP 19; TEMP 37.503; O2SAT 96
[2024-03-17] VITALS (7 sets, daily range): BP systolic 113–184; BP diastolic 43–81; PULSE 74–102; RESP 16–20; TEMP 36.05844–36.3918; O2SAT 82–99
[2024-03-18 04:00] VITALS: BP 119/71; PULSE 58; RESP 18; TEMP 36.50292; O2SAT 96
== END 2024-03-18 09:40 | DRG 312 ==
LOC: ER 19:47 → 7EST 22:56 → 4WST 03-10 10:35
PROVIDERS: ADMIT Internal Medicine; ATTEND Internal Medicine
DX: I95.2 Hypotension due to drugs (principal); G93.40 Encephalopathy, unspecified; F03.90 Unspecified dementia, unspecified severity, without behavioral disturbance, psychotic disturbance, mood disturbance, and anxiety; I10 Essential (primary) hypertension; Z20.822 Contact with and (suspected) exposure to COVID-19; E11.9 Type 2 diabetes mellitus without complications; E78.00 Pure hypercholesterolemia, unspecified; E78.5 Hyperlipidemia, unspecified; Z86.73 Personal history of transient ischemic attack (TIA), and cerebral infarction without residual deficits
CPT/HCPCS: 36415; 70551; 71045; 80048; 80053; 80061; 80076; 81003; 82140; 82962; 83036; 83605; 83880; 84145; 84484; 85025; 87426; 93005; 97162; 99285; J1815; J2060; J2470; J2543; J3370; J7030

== ENCOUNTER 2024-07-02 03:34 | Emergency (ER) | payer MEDICARE, MEDICAID ==
[~2024-07-02] VITALS: Ht 170.2 cm; Wt 73.0 kg
[~2024-07-02 03:34] MED LIST changes: -GLIP10TA17 PO; -INSU100I13 SUBCUT; -LACT10SO7 PO; -PIOG45TA64 PO; -SITA100T11 PO
[2024-07-02 03:41] VITALS: O2SAT 99
[2024-07-02 04:16] LABS: BASOPHILS % 0.8 % (0.0-2.0); HEMATOCRIT. 26.3 % (42.0-52.0); HEMOGLOBIN. 8.8 g/dL (14.0-18.0); LYMPHOCYTES % 21.1 % (20.0-50.0); MEAN CORPUSCULAR HEMOGLOBIN 30.3 pg (28.0-32.0); MEAN CORPUSCULAR HGB CONC 33.4 g/dL (31.0-37.0); MEAN CORPUSCULAR VOLUME 90.8 fL (80.0-94.0); MEAN PLATELET VOLUME 7.1 fl (7.4-10.4); NEUTROPHILS % 63.1 % (40.0-76.0); PLATELET 106 x1000/uL (130-400); RED CELL DISTRIBUTION WIDTH 15.3 % (11.6-14.6); WHITE BLOOD COUNT 3.6 x1000/uL (4.5-11.0)
[2024-07-02 04:34] LABS: CREATININE 1.2 mg/dL (0.6-1.3)
[2024-07-02] MEDS: ONDANSETRON HCL 4MG/2ML INJ IV STA (06:04)
[2024-07-02] MEDS: MORPHINE SULFATE 4 MG/ML INJ (FOR IV/IM USE) IV STA (06:04)
[2024-07-02] MEDS: SODIUM CHLORIDE 0.9% 1,000 ML IV ONE (06:04)
[2024-07-02 06:06] LABS: ALANINE AMINOTRANSFERASE 14 IU/L (10-49); ALBUMIN 3.2 g/dL (3.2-4.8); ASPARTATE AMINOTRANSFERASE 12 IU/L (<34); BILIRUBIN DIRECT 0.3 mg/dL (<=3.0); BILIRUBIN TOTAL 0.9 mg/dL (0.1-1.0); PROTEIN TOTAL 5.4 g/dL (6.0-8.3)
[2024-07-02 12:05] VITALS: BP 150/65; PULSE 71; RESP 18; TEMP 36.7; O2SAT 99
== END 2024-07-02 12:12 | disposition home or self-care (01) ==
LOC: ER 03:34
DX: K57.30 Diverticulosis of large intestine without perforation or abscess without bleeding (principal); R10.9 Unspecified abdominal pain; E11.9 Type 2 diabetes mellitus without complications; I10 Essential (primary) hypertension; Z79.4 Long term (current) use of insulin; Z79.82 Long term (current) use of aspirin; Z79.84 Long term (current) use of oral hypoglycemic drugs; Z79.899 Other long term (current) drug therapy
CPT/HCPCS: 99285; 74176; 96374; 96361; 96375; 80076; 80048; 83690; 85025; 36415; J2405; J2270; J7030

== ENCOUNTER 2024-08-02 04:12 | Emergency (ER) | payer MEDICARE, MEDICAID ==
[~2024-08-02] VITALS: Ht 167.6 cm; Wt 77.0 kg
[2024-08-02 04:20] VITALS: O2SAT 98
[2024-08-02 05:13] LABS: BASOPHILS % 0.8 % (0.0-2.0); EOSINOPHILS % 3.4 % (0.0-5.0); HEMATOCRIT. 28.3 % (42.0-52.0); HEMOGLOBIN. 9.9 g/dL (14.0-18.0); LYMPHOCYTES % 20.8 % (20.0-50.0); MEAN CORPUSCULAR HEMOGLOBIN 30.6 pg (28.0-32.0); MEAN CORPUSCULAR HGB CONC 34.8 g/dL (31.0-37.0); MEAN CORPUSCULAR VOLUME 87.8 fL (80.0-94.0); MEAN PLATELET VOLUME 7.5 fl (7.4-10.4); MONOCYTES % 9.9 % (2.0-8.0); NEUTROPHILS % 65.1 % (40.0-76.0); PLATELET 108 x1000/uL (130-400); RED BLOOD CELL COUNT 3.22 mill/uL (4.7-6.1); RED CELL DISTRIBUTION WIDTH 14.2 % (11.6-14.6); WHITE BLOOD COUNT 4.6 x1000/uL (4.5-11.0)
[2024-08-02 05:17] LABS: CHLORIDE 109 mEq/L (98-107); SODIUM 143 mEq/L (136-145)
[2024-08-02 05:18] LABS: CALCIUM 9.2 mg/dL (8.7-10.4); CARBON DIOXIDE 25 mEq/L (21-32)
[2024-08-02 05:23] LABS: CREATININE 1.5 mg/dL (0.6-1.3); GLUCOSE 140 mg/dL (70-105); UREA NITROGEN BLOOD 47 mg/dL (9-23)
[2024-08-02 05:25] LABS: ALANINE AMINOTRANSFERASE 14 IU/L (10-49); ASPARTATE AMINOTRANSFERASE 12 IU/L (<34); BILIRUBIN DIRECT 0.3 mg/dL (<=3.0)
[2024-08-02 05:26] LABS: BILIRUBIN TOTAL 1.2 mg/dL (0.1-1.0); PROTEIN TOTAL 6.6 g/dL (6.0-8.3)
[2024-08-02] MEDS: SODIUM CHLORIDE 0.9% 1,000 ML IV ONE (05:34)
[2024-08-02] MEDS: FAMOTIDINE 20MG/2ML VIAL IV STA (05:34)
[2024-08-02 07:56] LABS: CLARITY URINE CLEAR (CLEAR); COLOR URINE YELLOW (YELLOW); GLUCOSE URINE NEGATIVE (NEGATIVE); KETONES URINE NEGATIVE (NEGATIVE); LEUKOCYTE ESTERASE URINE NEGATIVE (NEGATIVE); NITRITE URINE NEGATIVE (NEGATIVE); OCCULT BLOOD URINE 1+ (NEGATIVE); PROTEIN URINE 2+ (NEGATIVE); SPECIFIC GRAVITY URINE 1.015 (1.005-1.030); UROBILINOGEN URINE 0.2 E.U./dL (0.2-1.0)
[2024-08-02 08:44] LABS: RBC URINE 0-2 /hpf (0-2); SQUAMOUS EPITHELIAL CELL URINE RARE /lpf (RARE/1+); WBC URINE 0-2 /hpf (0-2)
[2024-08-02 08:45] LABS: BACTERIA URINE TRACE; MUCUS URINE TRACE /lpf (NONE/TRACE)
[2024-08-02 10:46] VITALS: BP 144/60; PULSE 79; RESP 20; TEMP 36.8; O2SAT 100
== END 2024-08-02 11:14 | disposition left against medical advice (07) ==
LOC: ER 04:12 → EDBEDREQ 04:40 → ER 11:14 → CANBEDREQ 11:14
DX: R10.84 Generalized abdominal pain (principal); E11.9 Type 2 diabetes mellitus without complications; F03.90 Unspecified dementia, unspecified severity, without behavioral disturbance, psychotic disturbance, mood disturbance, and anxiety; I10 Essential (primary) hypertension; Z79.899 Other long term (current) drug therapy
CPT/HCPCS: 99285; 74176; 96374; 96361; 71045; 80076; 80048; 81003; 83605; 83690; 85025; 36415; 93005; J3490; J7030